=== PATIENT | female | born 1945 | race Caucasian/White ===

== ENCOUNTER 2017-05-10 07:04 | Emergency (ER) | payer MEDICARE ==
[~2017-05-10] VITALS: Ht 160 cm; Wt 54.5 kg
[2017-05-10] MEDS ORDERED: ATOR10TA84 PO (07:16)
[2017-05-10 08:22] LABS: APPEARANCE,URINE CLOUDY (CLEAR); GLUCOSE, URINE (UA) NEGATIVE (NEGATIVE); KETONES,URINE NEGATIVE (NEGATIVE); LEUKOCYTE ESTERASE ,URINE LARGE (NEGATIVE); OCCULT BLOOD,URINE LARGE (NEGATIVE); PROTEIN,URINE POS 1+ (NEGATIVE)
[2017-05-10 08:35] LABS: ADD UA MICROSCOPIC YES
[2017-05-10 08:36] LABS: RBC,URINE 51-100 /HPF (0-2); RENAL EPITHELIAL CELLS,URINE Rare /LPF (None Seen); SQUAMOUS EPITHELIAL CELL,UR Moderate /LPF (None Seen); WBC,URINE >100 /HPF (0-5)
[2017-05-10] MEDS ORDERED: PHENAZOPYRIDINE HCL 100 MG TABLET PO ONE (09:00)
[2017-05-10] MEDS ORDERED: NITROFURANTOIN/NITROFURAN MAC 100 MG CAPSULE [MACROBID] PO ONE (09:00)
[2017-05-10 09:11] VITALS: BP 116/91
== END 2017-05-10 09:24 | disposition home or self-care (01) ==
LOC: EMS 07:07
DX: N39.0 Urinary tract infection, site not specified (principal); E78.00 Pure hypercholesterolemia, unspecified; Z79.899 Other long term (current) drug therapy
CPT/HCPCS: 87086; 99284